=== PATIENT | male | born 1950 | race Caucasian/White ===

== ENCOUNTER 2018-07-21 10:52 | Emergency (ER) | payer MEDICAID ==
--- NOTE | 2018-07-21 12:42 | ED Physician Chart ---
ED Chief Complaint/HPI - Patient Information Date Seen:: 07/21/18 Time Seen:: 11:39 Chief Complaint:: gravely disabled 5150 History of Present Illness:: gravely disabled 5150 Allergies:: Allergies Allergy/AdvReac Type Severity Reaction Status Date / Time UNOBTN - Unobtainable Allergy Verified 07/21/18 11:36 Vitals:: Vital Signs - 8 hr 07/21/18 11:39 Temp 96.9 F HR 89 RR 18 BP 128/95 O2 Sat % 98 Historian:: Other Family MD/PCP:: police officers ED Review of Systems - Review of Systems General/Constitutional: No fever, No chills, No weight loss, No weakness, No diaphoresis, No edema, No loss of appetite Skin: No skin lesions, No rash, No bruising Head: No headache, No light-headedness Eyes: No loss of vision, No pain, No diplopia ENT: No earache, No nasal drainage, No sore throat, No tinnitus Neck: No neck pain, No swelling, No thyromegaly, No stiffness, No mass noted Cardio Vascular: No chest pain, No palpitations, No PND, No orthopnea, No edema Pulmonary: No SOB, No cough, No sputum, No wheezing GI: No nausea, No vomiting, No diarrhea, No pain, No melena, No hematochezia, No constipation, No hematemesis G/U: No dysuria, No frequency, No hematuria Musculoskeletal: No bone or joint pain, No back pain, No muscle pain Endocrine: No polyuria, No polydipsia Psychiatric: Other (masturbating in public yesterday) Hematopoietic: No bruising, No lymphadenopathy Allergic/Immuno: No urticaria, No angioedema Neurological: No syncope, No focal symptoms, No weakness, No paresthesia, No headache, No seizure, No dizziness, No confusion, No vertigo ED Past Medical History - Past Medical History Obtainable: No Past Medical History: No significant medical hx, Other (right foot pain) Family Medical History - Family Member Mother History Unknown: Yes ED Physical Exam - Physical Examination Other Gen/Cons comments:: disheveled. smells of urine throughout Head: Atraumatic Eyes: Lids, conjuctiva normal, PERRL, EOMI Skin: Nl inspection, No rash, No skin lesions, No ecchymosis, Well hydrated, No lymphadenopathy ENMT: External ears, nose nl Neck: Nontender, Full ROM w/o pain, No nuchal rigidity, No stridor Respiratory: Nl effort/Exclusion, Clear to Auscultation, No Wheeze/Rhonchi/Rales Cardio Vascular: RRR, No murmur, gallop, rubs, NL S1 S2 GI: No tenderness/rebounding/guarding, No organomegaly, No hernia, Normal BS's, Nondistended, No mass/bruits, No McBurney tenderness : No CVA tenderness Other Extremities comments:: right foot slightly swollen Neuro/Psych: Mood normal Other Neuro/Psych comments:: right foot antalgic gait Misc: Normal back, No paraspinal tenderness ED Assessment - Assessment General Assessment: xray per my reading: healing right second metatarsal base fracture xray read out as negative by radiologist seen by Dr. Rowe. He needs placement. ED Septic Shock - . Is Septic Shock (SBP<90, OR Lactate>4 mmol\L) present?: No - <6hrs of presentation: Vital Signs: Vital Signs - 8 hr 07/21/18 11:39 Temp 96.9 F HR 89 RR 18 BP 128/95 O2 Sat % 98 ED Reassessment (Disposition) - Reassessment Reassessment Condition:: Improved - Diagnosis Diagnosis:: Gravely disabled. - Patient Disposition Condition at Disposition:: Stable, Improved
[2018-07-21 12:43] LABS: % BASOPHILS 1.2 % (0.0-2.0); % EOSINOPHILS 2.4 % (0.0-5.0); % LYMPHOCYTES 34.3 % (20.0-50.0); % MONOCYTES 9.9 % (2.0-10.0); % NEUTROPHILS 52.2 % (40.0-80.0); BASOPHILE ABSOLUTE 0.1 Th/cumm (0-0.2); EOSINOPHILE ABSOLUTE 0.1 Th/cmm (0.1-0.4); HEMATOCRIT 37.9 % (41.0-60); HEMOGLOBIN 12.4 gm/dL (12-16); LYMPHOCYTE ABSOLUTE 1.9 Th/cmm (1.5-3.0); MEAN CELL VOLUME 89.3 fl (80-99); MEAN CORPUSCULAR HEMOGLOBIN 29.3 pg (27.0-31.0); MEAN CORPUSCULAR HGB CONC 32.8 pg (28.0-36.0); MEAN PLATELET VOLUME 7.3 fl; MONOCYTE ABSOLUTE 0.5 Th/cmm (0.3-1.0); NEUTROPHILE ABSOLUTE 2.8 Th/cmm (1.8-8.0); PLATELET COUNT 345 Th/cmm (150-400); RED BLOOD COUNT 4.24 Mil/cmm (3.80-5.80); RED CELL DISTRIBUTION WIDTH 14.4 % (11.5-20.0); WHITE BLOOD COUNT 5.4 Th/cmm (4.8-10.8)
--- NOTE | 2018-07-21 12:46 | Diagnostic Imaging Report ---
Right foot (3 views) HISTORY: Pain No acute bony abnormalities are seen. No fractures. Joint spaces are maintained. IMPRESSION: 1. No acute bony abnormalities. In the presence of recent trauma and persistent symptoms, a repeat radiograph in 5-7 days may be helpful for detection of a subtle or occult fracture.
[2018-07-21 13:03] LABS: ALB/GLOB RATIO 0.9 (1.0-1.8); ALBUMIN 3.3 gm/dL (4.2-5.5); ALKALINE PHOSPHATASE 82 U/L (34-104); ANION GAP 13.8 (7.0-16.0); BILIRUBIN,TOTAL 0.3 mg/dL (0.3-1.0); BUN - UREA NITROGEN 22 mg/dL (7-25); CALCIUM SERUM 9.7 mg/dL (8.6-10.3); CARBON DIOXIDE 22.3 mEq/L (21.0-31.0); CHLORIDE 108 mEq/L (98-107); CREATININE - SERUM 1.4 mg/dL (0.7-1.3); GFR AFRICAN-AMERICAN > 60.0 ml/min (>90); GFR NON AFRICAN-AMERICAN 53.7 ml/min; GLUCOSE 87 mg/dL (70-105); MAGNESIUM 1.8 mg/dL (1.9-2.7); PHOSPHOROUS 3.2 mg/dL (2.5-5.0); POTASSIUM SERUM 4.1 mEq/L (3.5-5.1); SGOT 21 U/L (13-39); SGPT/ALT 22 U/L (7-52); SODIUM SERUM 140 mEq/L (136-145); TOTAL PROTEIN,SERUM 7.1 gm/dL (6.0-8.3)
[2018-07-21 13:18] LABS: ACETAMINOPHEN < 10.0 ug/mL (10.0-30.0); SALICYLATES (ASPIRIN) < 25.0 mg/L (30.0-100.0)
[2018-07-21 13:58] LABS: URINE SOURCE CLEAN C
[2018-07-21 14:01] LABS: URINE BILIRUBIN NEGATIVE (NEGATIVE); URINE BLOOD NEGATIVE (NEGATIVE); URINE GLUCOSE (UA) NEGATIVE (NEGATIVE); URINE KETONE NEGATIVE (NEGATIVE); URINE LEUKOCYTE ESTERASE NEGATIVE (NEGATIVE); URINE MICROSCOPIC INDICATED? YES; URINE NITRATE NEGATIVE (NEGATIVE); URINE PH 5.5 (4.6 - 8.0); URINE PROTEIN TRACE mg/dL (NEGATIVE); URINE UROBILINOGEN 0.2 E.U./dL (0.2 - 1.0)
[2018-07-21 14:15] LABS: URINE CLARITY CLEAR (CLEAR); URINE COLOR YELLOW
[2018-07-21 14:18] LABS: URINE BACTERIA FEW /hpf (NONE SEEN); URINE EPITHELIAL CELLS FEW /lpf (FEW); URINE RBC 0-2 /hpf (0-5)
[2018-07-21 14:20] LABS: AMPHETAMINE URINE NEGATIVE (NEGATIVE); BARBITURATES URINE NEGATIVE (NEGATIVE); BENZODIAZEPINES QUAL URINE NEGATIVE (NEGATIVE); CANNABINOID THC NEGATIVE (NEGATIVE); COCAINE METABOLITE QUAL URINE NEGATIVE (NEGATIVE); METHADONE URINE NEGATIVE (NEGATIVE); METHAMPHETAMINES QUAL URINE NEGATIVE (NEGATIVE); OPIATES (MORPHINE) QUAL. URINE NEGATIVE (NEGATIVE); PHENCYCLIDINE (PCP) URINE NEGATIVE (NEGATIVE); TRICYCLICS (TCA) QUAL. URINE NEGATIVE (NEGATIVE)
--- NOTE | 2018-07-21 15:57 | Consultation ---
DATE OF CONSULTATION: 07/21/2018 CHIEF COMPLAINT: The patient was seen in the Emergency Room on 07/21/2018. IDENTIFYING INFORMATION: The patient is a 67-year-old male ____ in consult as this patient who was brought by the police on a hold for grave disability. That was a crisis evaluation for this patient who has been mumbling to himself, has a poor memory, has been masturbating in public, which resulted in contact by the police 3 times in the past 2 days, was seen [id number]. He was depressed, poor hygiene, malodorous, poor historian, unable to understand his action. He was wearing soiled clothing. Client unable to provide a date, date, age and name. The client has poor memory recall. Client unable to care for himself, unable to verbalize ability to provide for basic needs of food, group home and clothing. The patient believes that he has 2 times and has a , but does not know her name. When I talked to the patient, he was in bed. He kept complaining of cold, asked me to put his socks on. When asked about his age, he ____ 89. He is not sure where he is, why he is here, complaining of feeling tired. He denies any intent to harm himself or anybody. He denies any other visual hallucination. The patient is a poor historian. PAST PSYCHIATRIC HISTORY: Unable to obtain information as the patient is a poor historian, rambling to himself, mumbling to himself, unable to make safe plan for self-care or participate in meaningful conversation and making odd statement. Does not know where he is, why he is here. MEDICAL HISTORY: Deferred to the medical doctor. FAMILY AND SOCIAL HISTORY: The patient reports that he is not sure if he is or . He does not know if has children or not, may be yes, may be no. Unable to give me more information about his living situation. Apparently, he has been homeless, masturbating in the streets. MENTAL STATUS EXAMINATION: The patient looked disheveled, disorganized, internally preoccupied, unable to tell me the date or his age, why he is here, believes he is 89 years of age. Unable to participate in meaningful conversation or make safe plan for self-care. He denies any intent to harm himself or anybody. He denies any auditory or visual hallucination, but he is mumbling to himself, very poor insight. Unable to participate in memory testing. Long and short term memory is poor. Insight and judgment is impaired. IMPRESSION: Psychosis, not otherwise specified. MEDICAL DIAGNOSES: I would recommend start the patient on Abilify, the patient needs to go to either a Psych Unit or placement in a nursing facility where he could be supervised and given medication. Thank you very much for allowing me to participate in the care of this most interesting gentleman. JOB# [id number]
== END 2018-07-24 10:55 | disposition home or self-care (01) ==
LOC: ER 10:52
DX: F79 Unspecified intellectual disabilities (principal); R26.89 Other abnormalities of gait and mobility; M79.89 Other specified soft tissue disorders
CPT/HCPCS: 36415-UA; 73630-TC-RT; 80053-TC; 80307; 80320-TC; 80329-TC; 81001-TC; 83735-TC; 84100-TC; 84443-TC; 85025-TC